=== PATIENT | male | born 1975 | race Caucasian/White ===

== ENCOUNTER 2018-11-16 22:41 | Emergency (ER) | payer SELFPAY ==
[~2018-11-16] VITALS: Ht 177.8 cm; Wt 89.8 kg
[2018-11-16] MEDS ORDERED: HYDR-4354 PO (23:02)
[2018-11-16] MEDS ORDERED: METO25CA PO (23:02)
[2018-11-16] MEDS ORDERED: IV NORMAL SALINE 1000 ML BAG IV ONE (23:30)
[2018-11-16] MEDS ORDERED: MORPHINE SULFATE 4 MG/1 ML DISP.SYRIN IV ONE (23:30)
[2018-11-16] MEDS ORDERED: ONDANSETRON 4 MG/2 ML VIAL IV ONE (23:30)
[2018-11-16] MEDS ORDERED: ONDANSETRON 4 MG/2 ML VIAL ONE (23:36)
[2018-11-16] MEDS ORDERED: MORPHINE SULFATE 4 MG/1 ML DISP.SYRIN ONE (23:36)
[2018-11-16 23:47] LABS: BASOPHILS # (AUTO) 0.1 K/uL (0.0-8.0); EOSINOPHILS # (AUTO) 0.1 K/uL (0.0-0.7); EOSINOPHILS % (AUTO) 0.9 % (0.0-7.0); HEMATOCRIT 42.9 % (36.7-47.1); HEMOGLOBIN 15.2 g/dL (12.5-16.3); LYMPHOCYTES # (AUTO) 1.5 K/uL (20.0-40.0); LYMPHOCYTES % (AUTO) 27.9 % (20.5-51.5); MEAN CORPUSCULAR HEMOGLOBIN 33.3 uug (23.8-33.4); MEAN CORPUSCULAR HGB CONC 36 g/dL (32.5-36.3); MEAN CORPUSCULAR VOLUME 93.8 fL (73.0-96.2); MONOCYTES # (AUTO) 0.5 K/uL (2.0-10.0); NEUTROPHILS # (AUTO) 3.3 K/uL (1.8-8.9); NEUTROPHILS % (AUTO) 61.2 % (38.5-71.5); PLATELET COUNT (AUTO) 247 K/uL (152-348); RED BLOOD CELL COUNT(AUTO) 4.57 MIL/uL (4.06-5.63); WHITE BLOOD COUNT (AUTO) 5.5 K/uL (3.6-10.2)
--- NOTE | 2018-11-16 23:48 | NUR ---
Rad. tech. here for transport to [place]
--- NOTE | 2018-11-17 00:01 | NUR ---
Pt. ambulated into ED w/ 08/01 diffuse pain to epigastric region, pt. was diagnosed w/ stomach CA X 3 weeks ago and began chemotherapy
[2018-11-17 00:05] LABS: BILIRUBIN,DIRECT 0.1 mg/dL (0.0-0.2); BILIRUBIN,TOTAL 0.5 mg/dL (0.2-1.0); CREATININE 1.1 mg/dL (0.6-1.3); POTASSIUM 3.6 mmol/L (3.5-5.1); TOTAL PROTEIN, SERUM 7.4 g/dL (6.4-8.2)
--- NOTE | 2018-11-17 00:07 | NUR ---
Pt. back from CT, NAD
--- NOTE | 2018-11-17 00:20 | NUR ---
IV patent and infusing fluids, NAD
[2018-11-17] MEDS ORDERED: HYDROMORPHONE 1 MG/1 ML DISP.SYRIN ONE (00:38)
[2018-11-17] MEDS ORDERED: HYDROMORPHONE 1 MG/1 ML DISP.SYRIN IV ONE (00:45)
--- NOTE | 2018-11-17 01:29 | NUR ---
Pt. up to use restroom, ambulated w/ steady gait, IV patent - no s/s infiltration/phlebitis,
--- NOTE | 2018-11-17 01:47 | NUR ---
Patient discharged to home in stable conditon. Written and verbal after care instructions given. Patient verbalizes understanding of instructions. Pt. d/c w/ prescription per MD orders, d/c papers signed, all belongings w/ pt., ID band/IV removed, ambulated out of ED w/ steady gait, left in private vehicle, NAD
== END 2018-11-17 01:49 | disposition home or self-care (01) ==
LOC: ER 22:43
DX: R10.13 Epigastric pain (principal); Z90.89 Acquired absence of other organs; Z88.2 Allergy status to sulfonamides; Z79.891 Long term (current) use of opiate analgesic; Z79.899 Other long term (current) drug therapy
CPT/HCPCS: 36415; 74150; 80048; 80076; 83690; 85025; 96361; 96374; 96375; 99284; J1170; J2270; J2405; A4663; J7030